=== PATIENT | female | born 1935 | race Two or more races ===

== ENCOUNTER 2021-02-18 23:27 | Emergency (ER) | payer OTHER ==
[~2021-02-18] VITALS: Ht 152.4 cm; Wt 59.9 kg
[2021-02-19 00:57] LABS: Basophils # (auto) 0.1 10 ^3/uL (0-0.2); Basophils % (auto) 0.7 % (0.0-2.0); Eosinophils # (auto) 0.2 10 ^3/uL (0-0.8); Eosinophils % (auto) 2.1 % (0.0-7.0); Hematocrit 40.8 % (36.0-46.0); Hemoglobin 13.7 g/dL (12.2-16.2); Lymphocytes # (auto) 2.8 10 ^3/uL (0.4-5.4); Lymphocytes % (auto) 37.7 % (10.0-50.0); Mean Corpuscular Hemoglobin 29.7 pg (28.0-32.0); Mean Corpuscular Hgb Conc. 33.6 g/dL (32.0-36.0); Mean Corpuscular Volume 88.6 fL (80.0-100.0); Monocytes # (auto) 0.6 10 ^3/uL (0-1.3); Monocytes % (auto) 8.5 % (0.0-12.0); Neutrophils # (auto) 3.8 10 ^3/uL (1.6-8.6); Nucleated Red Blood Cells % 0.1 %; Red Cell Distribution Width 14.2 % (11.8-14.3); White Blood Cell 7.5 10^3/uL (4.4-10.8)
[2021-02-19 01:13] LABS: INR 1.02 (0.9-1.15)
[2021-02-19 01:18] LABS: Albumin 3.3 g/dL (3.4-5.0); Anion Gap 5 (5-15); Blood Urea Nitrogen 20 mg/dL (7-18); Calcium 8.3 mg/dL (8.5-10.1); Carbon Dioxide 25 mmol/L (21-32); Chloride 108 mmol/L (98-107); Glucose 92 mg/dL (74-106); Potassium 3.6 mmol/L (3.5-5.1); Sodium 138 mmol/L (136-145)
[2021-02-19 01:20] LABS: Alanine Aminotransferase 18 U/L (13-56); Aspartate Aminotransferase 18 U/L (15-37); BUN/Creatinine Ratio 24.4; GFR African American 85 mL/min; GFR Non-African American 70 mL/min
[2021-02-19] MEDS: hydrALAZINE HCL 20 MG/ML VL IV ONE (01:20)
[2021-02-19 01:24] LABS: Alkaline Phosphatase 38 U/L (45-117); Bilirubin, Total 0.5 mg/dL (0.2-1.0); Total Protein 7.3 g/dL (6.4-8.2)
[2021-02-19] MEDS: NITROGLYCERIN 0.4 MG SL TAB SL ONE (02:24)
[2021-02-19] MEDS: IOHEXOL 350 MG/ML 100ML IJ ONE (02:42)
[2021-02-19] MEDS: ASPirin 325 MG TAB PO ONE (03:15)
[2021-02-19 03:45] VITALS: BP 163/80
== END 2021-02-19 05:50 | disposition home or self-care (01) ==
LOC: ER 23:27 → EDBD 23:27 → ER 02-19 05:50
DX: R07.89 Other chest pain (principal); I10 Essential (primary) hypertension; I16.0 Hypertensive urgency; R55 Syncope and collapse; Z20.822 Contact with and (suspected) exposure to COVID-19
CPT/HCPCS: 36415; 70450; 71045; 71275; 80053; 82962; 84484; 85025; 85610; 87426; 93005; 96374; 99285; J0360; Q9967